=== PATIENT | female | born 1950 | race Caucasian/White ===

== ENCOUNTER → 2016-09-12 | Outpatient (CLI) | payer MEDICARE, OTHER ==
--- NOTE | 2016-09-12 18:33 | RADRPT ---
Echocardiogram Report Patient Name: NICOLE ALDANA Gender: Female Date: 1950 Study Date: 12-Sep-2016 Measurement And Verification Engineer: João Cole RDCS Location: EKG Ref. Physician: MARYBETH BLUNT Quality: Technically Difficult Study Procedures: Transthoracic echocardiogram with complete 2D, M-Mode, and doppler examination. Indications: Atrial Fibrillation. 2D/M Mode Doppler Measurement Value Normal Ranges Measurement Value Normal Ranges LVIDd 2D 4.0 3.5 - 5.6 cm AV Peak Gene 1.0 m/sec LVIDs 2D 2.8 2.1 - 4.1 cm AV Peak PG 4.0 mmHg LVPWd 2D 0.9 0.6 - 1.1 cm LVOT Peak Gene 0.9 m/sec IVSd 2D 0.7 0.6 - 1.1 cm LVOT Peak PG 3.0 mmHg AoR Diam 2D 2.6 2.0 - 3.7 cm MV E Peak Gene 0.7 m/sec EDV 2D 71.4 cm3 MV A Peak Gene 0.6 m/sec ESV 2D 21.1 cm3 MV E/A 1.3 LA Dimen 2D 4.1 2.3 - 4.0 cm MV Decel Time 229 msec MV Decel Clay 3 MV E/A 1.3 TR Peak Gene 2.5 m/sec TR Peak PG 24.1 mmHg RVSP 32.0 mmHg Findings Left Ventricle: Normal left ventricular systolic function. Normal left ventricular cavity size. Normal left ventricular wall thickness. Ejection fraction is visually estimated at 60 %. Right Ventricle: Normal right ventricular systolic function. Not well visualized. Left Atrium: There is mild enlargement of left atrium. Right Atrium: The right atrium is normal in size. Mitral Valve: Mitral valve leaflets appear mildly thickened. Mild mitral annular calcification. Trace mitral regurgitation. Aortic Valve: No hemodynamically significant aortic stenosis by doppler. Aortic cusps appear mildly calcified. Trace to mild aortic valve regurgitation. Tricuspid Valve: Tricuspid valve not well visualized. Estimated peak PA systolic pressure 32 mmHg. There is mild tricuspid regurgitation. Pulmonic Valve: Normal pulmonic valve appearance. Pericardium: Normal pericardium with no significant pericardial effusion. Aorta: Normal aortic root. IVC: Inferior vena cava without respiratory collapse, however, patient on ventilator. Conclusions 1.Normal left ventricular systolic function. Normal left ventricular cavity size. Normal left ventricular wall thickness. Ejection fraction is visually estimated at 60 %. 2.There is mild enlargement of left atrium. 3.Mitral valve leaflets appear mildly thickened. Mild mitral annular calcification. Trace mitral regurgitation. 4.No hemodynamically significant aortic stenosis by doppler. Aortic cusps appear mildly calcified. Trace to mild aortic valve regurgitation. 5.Tricuspid valve not well visualized. Estimated peak PA systolic pressure 32 mmHg. There is mild tricuspid regurgitation. Electronically Signed By: Marybeth Blunt 12-Sep-2016 18:32:23 -0800 Patient Name: NICOLE ALDANA Study Date: 12-Sep-2016 [id number]
== END | disposition home or self-care (01) ==
LOC: EKG 10:38
PROVIDERS: ATTEND Internal Medicine
DX: I48.91 Unspecified atrial fibrillation (principal)
CPT/HCPCS: 93306